=== PATIENT | male | born 1960 | race Caucasian/White ===

== ENCOUNTER 2017-12-26 12:55 | Emergency (ER) | payer BC ==
[~2017-12-26 12:55] MED LIST: LISI20TA29 PO
--- NOTE | 2017-12-26 13:05 | ER Report ---
History and Physical Time Seen By MD: 13:05 Hx. of Stated Complaint: LEFT FLANK PAIN. NO DIFFICULTY OF URINATING. HPI/ROS CHIEF COMPLAINT: Left flank pain HISTORY OF PRESENT ILLNESS: 57-year-old male patient presents to emergency room with complaint of left flank pain. Patient states that he has been having this pain intermittently for the last couple weeks. Patient does have a history of kidney stones in the past. States she's been doing well for the last couple of years, however he states this been bothering him. He states that he has not seen a urologist here in [place] since moving here approximately 10 years ago. He states he has passed a few stones since that time. He denies having any nausea, vomiting. Patient states that he has not taken any medication for this. He states this feels very similar to his previous kidney stones. REVIEW OF SYSTEMS: Respiratory: No cough, no dyspnea. Cardiovascular: No chest pain, no palpitations. Gastrointestinal: No vomiting, no abdominal pain. Musculoskeletal: As noted above Allergies: Coded Allergies: No Known Drug Allergies (Unverified , 12/26/17) Home Meds Active Scripts Tamsulosin Hcl (FLOMAX) 0.4 Mg Cap.er.24h, 0.4 MG PO DAILY, #15 CAP Prov:JOHANNE ROBINS [facility] 12/26/17 Ondansetron (ZOFRAN ODT) 4 Mg Tab.rapdis, 4 MG PO Q6H PRN for NAUSEA/VOMITING, #20 TAB.KEENAN Prov:ROBIN ROBINSE [facility] 12/26/17 Hydrocodone Bit/Acetaminophen (HYDROCODON-ACETAMINOPHEN 5-325) 1 Each Tablet, 1 EACH PO Q4-6H PRN for PAIN, #12 TAB Prov:SHIMONJOHANNE [facility] 12/26/17 Reported Medications Lisinopril (LISINOPRIL) 20 Mg Tablet, 20 MG PO QDAY, TAB 08/16/16 Past Medical/Surgical History Patient has a past medical history of neuropathy, hypertension, kidney stones. Patient has surgical history of lithotripsy. Reviewed Nurses Notes: Yes Hx Substance Use Disorder: No Hx Alcohol Use: No Constitutional Vital Sign - Last 24 Hours 12/26/17 12/26/17 12/26/17 12/26/17 13:01 13:02 13:36 14:00 Temp 98.0 Pulse 56 56 Resp 18 B/P (MAP) 132/85 132/85 (101) 123/79 (94) 120/79 (93) Pulse Ox 94 91 O2 Delivery Room Air 12/26/17 12/26/17 12/26/17 12/26/17 14:30 15:00 15:30 16:00 Pulse 54 64 56 56 B/P (MAP) 126/82 (97) 131/79 (96) 116/82 (93) 126/83 (97) Pulse Ox 88 94 91 90 12/26/17 16:22 B/P (MAP) 126/81 (96) Physical Exam General Appearance: The patient is alert, has no immediate need for airway protection and no current signs of toxicity. Respiratory: Chest is non tender, lungs are clear to auscultation. Cardiac: regular rate and rhythm Gastrointestinal: Abdomen is soft and non tender, no masses, bowel sounds normal. Patient does have some mild flank tenderness, not worsened with palpation. Musculoskeletal: Neck: Neck is supple and non tender. Extremities have full range of motion and are non tender. Skin: No rashes or lesions. DIFFERENTIAL DIAGNOSIS: After history and physical exam differential diagnosis was considered for kidney stone, polynephritis, diverticulitis. Medical Decision Making Data Points Result Diagram: 12/26/17 1307 12/26/17 1307 Laboratory Hematology Test 12/26/17 13:07 12/26/17 13:35 Red Blood Count 4.94 M/uL (4.00-5.60) Mean Corpuscular Volume 93.1 fL (80.0-96.0) Mean Corpuscular Hemoglobin 32.0 pg (26.0-33.0) Mean Corpuscular Hemoglobin Concent 34.3 g/dL (32.0-36.0) Red Cell Distribution Width 12.7 % (11.5-14.5) Mean Platelet Volume 9.3 fL (7.2-11.1) Neutrophils (%) (Auto) 45.7 % (39.4-72.5) Lymphocytes (%) (Auto) 44.6 % (17.6-49.6) Monocytes (%) (Auto) 7.7 % (4.1-12.4) Eosinophils (%) (Auto) 1.5 % (0.4-6.7) Basophils (%) (Auto) 0.5 % (0.3-1.4) Nucleated RBC Relative Count (auto) 0.1 /100WBC Neutrophils # (Auto) 2.2 K/uL (2.0-7.4) Lymphocytes # (Auto) 2.2 K/uL (1.3-3.6) Monocytes # (Auto) 0.4 K/uL (0.3-1.0) Eosinophils # (Auto) 0.1 K/uL (0.0-0.5) Basophils # (Auto) 0.0 K/uL (0.0-0.1) Nucleated RBC Absolute Count (auto) 0.00 K/uL Erythrocyte Sedimentation Rate 2 mm/HOUR (0-20) Sodium Level 141 mmol/L (137-145) Potassium Level 4.2 mmol/L (3.5-5.0) Chloride Level 106 mmol/L (98-107) Carbon Dioxide Level 26 mmol/L (22-30) Blood Urea Nitrogen 19 mg/dl (9-21) Creatinine 1.20 mg/dl (0.66-1.25) Glomerular Filtration Rate Calc > 60.0 Random Glucose 90 mg/dl (75-110) Calcium Level 8.9 mg/dl (8.4-10.2) Total Bilirubin 0.9 mg/dl (0.2-1.3) Aspartate Amino Transf (AST/SGOT) 28 U/L (0-35) Alanine Aminotransferase (ALT/SGPT) 33 U/L (0-56) Alkaline Phosphatase 52 U/L (0-126) C-Reactive Protein < 0.5 mg/dl (<1.0) Total Protein 6.8 g/dl (6.3-8.2) Albumin 4.0 g/dl (3.5-5.0) Urine Color Yellow Urine Clarity Clear Urine pH 5.0 pH (4.8-9.5) Urine Specific [place] 1.012 Urine Protein Negative mg/dL (NEGATIVE) Urine Glucose (UA) Negative mg/dL (NEGATIVE) Urine Ketones Negative mg/dL (NEGATIVE) Urine Blood Negative (NEGATIVE) Urine Nitrite Negative (NEGATIVE) Urine Bilirubin Negative (NEGATIVE) Urine Urobilinogen Negative mg/dL (0.2-1.9) Urine Leukocyte Esterase Negative (NEGATIVE) Urine RBC None /HPF (0-2/HPF) Urine WBC None /HPF (0-5/HPF) Urine Squamous Epithelial Cells None /LPF (</=FEW) Urine Bacteria Negative /HPF (NONE-FEW) Urine Mucus None /HPF (NONE-FEW) Chemistry Test 12/26/17 13:07 12/26/17 13:35 White Blood Count 4.9 k/uL (4.5-11.0) Red Blood Count 4.94 M/uL (4.00-5.60) Hemoglobin 15.8 g/dL (14.0-18.0) Hematocrit 46.0 % (42.0-52.0) Mean Corpuscular Volume 93.1 fL (80.0-96.0) Mean Corpuscular Hemoglobin 32.0 pg (26.0-33.0) Mean Corpuscular Hemoglobin Concent 34.3 g/dL (32.0-36.0) Red Cell Distribution Width 12.7 % (11.5-14.5) Platelet Count 121 K/uL (150-450) Mean Platelet Volume 9.3 fL (7.2-11.1) Neutrophils (%) (Auto) 45.7 % (39.4-72.5) Lymphocytes (%) (Auto) 44.6 % (17.6-49.6) Monocytes (%) (Auto) 7.7 % (4.1-12.4) Eosinophils (%) (Auto) 1.5 % (0.4-6.7) Basophils (%) (Auto) 0.5 % (0.3-1.4) Nucleated RBC Relative Count (auto) 0.1 /100WBC Neutrophils # (Auto) 2.2 K/uL (2.0-7.4) Lymphocytes # (Auto) 2.2 K/uL (1.3-3.6) Monocytes # (Auto) 0.4 K/uL (0.3-1.0) Eosinophils # (Auto) 0.1 K/uL (0.0-0.5) Basophils # (Auto) 0.0 K/uL (0.0-0.1) Nucleated RBC Absolute Count (auto) 0.00 K/uL Erythrocyte Sedimentation Rate 2 mm/HOUR (0-20) Glomerular Filtration Rate Calc > 60.0 Calcium Level 8.9 mg/dl (8.4-10.2) Total Bilirubin 0.9 mg/dl (0.2-1.3) Aspartate Amino Transf (AST/SGOT) 28 U/L (0-35) Alanine Aminotransferase (ALT/SGPT) 33 U/L (0-56) Alkaline Phosphatase 52 U/L (0-126) C-Reactive Protein < 0.5 mg/dl (<1.0) Total Protein 6.8 g/dl (6.3-8.2) Albumin 4.0 g/dl (3.5-5.0) Urine Color Yellow Urine Clarity Clear Urine pH 5.0 pH (4.8-9.5) Urine Specific [place] 1.012 Urine Protein Negative mg/dL (NEGATIVE) Urine Glucose (UA) Negative mg/dL (NEGATIVE) Urine Ketones Negative mg/dL (NEGATIVE) Urine Blood Negative (NEGATIVE) Urine Nitrite Negative (NEGATIVE) Urine Bilirubin Negative (NEGATIVE) Urine Urobilinogen Negative mg/dL (0.2-1.9) Urine Leukocyte Esterase Negative (NEGATIVE) Urine RBC None /HPF (0-2/HPF) Urine WBC None /HPF (0-5/HPF) Urine Squamous Epithelial Cells None /LPF (</=FEW) Urine Bacteria Negative /HPF (NONE-FEW) Urine Mucus None /HPF (NONE-FEW) Urinalysis Test 12/26/17 13:35 Urine Color Yellow Urine Clarity Clear Urine pH 5.0 pH (4.8-9.5) Urine Specific [place] 1.012 Urine Protein Negative mg/dL (NEGATIVE) Urine Glucose (UA) Negative mg/dL (NEGATIVE) Urine Ketones Negative mg/dL (NEGATIVE) Urine Blood Negative (NEGATIVE) Urine Nitrite Negative (NEGATIVE) Urine Bilirubin Negative (NEGATIVE) Urine Urobilinogen Negative mg/dL (0.2-1.9) Urine Leukocyte Esterase Negative (NEGATIVE) Urine RBC None /HPF (0-2/HPF) Urine WBC None /HPF (0-5/HPF) Urine Squamous Epithelial Cells None /LPF (</=FEW) Urine Bacteria Negative /HPF (NONE-FEW) Urine Mucus None /HPF (NONE-FEW) EKG/Imaging Imaging COMPUTED TOMOGRAPHY OF THE Abdomen and Pelvis with CONTRAST INDICATION: Flank pain. TECHNIQUE: Contiguous axial 3.[address] images were obtained through the abdomen and pelvis after 85 mL Isovue-370. Coronal and sagittal reformatted images were submitted. COMPARISON: None. FINDINGS: Lung bases: The lung bases are clear. Liver and hepatic vasculature: The liver surface appears mildly nodular, but there is no ascites or focal lesion apparent on this noncontrast study. Gallbladder and bile ducts: Surgically absent gallbladder. Spleen: Normal Pancreas: Normal Adrenals: Normal Kidneys, ureters and bladder: 3.3 cm left renal cyst is simple appearing. There are additional small cysts in the right kidney. A 2-3 mm calculus at the right kidney is nonobstructive. The bladder is unremarkable. There is a 4 to 5 mm calculus in the downstream left ureter results in no more than mild dilation of the left ureter and no significant hydronephrosis. Retroperitoneum and aorta: Normal caliber aorta. Scattered adenopathy. GI tract, mesentery and peritoneum: No bowel obstruction. No free fluid or free air. There are multiple pelvic surgical clips. There are several phleboliths in the pelvis. Suggestion of wall thickening involving the greater curvature of the stomach may be from incomplete filling. Prostate: Surgically absent Bones and soft tissues: No acute osseous abnormality. Multilevel degenerative findings in the lumbar spine. There is postsurgical change of anterior midline with a small fat-containing periumbilical hernia. Mild atrophy of the left rectus musculature. IMPRESSION: 1. The 4 to 5 mm calcification in the left lower pelvis appears to be within the distal ureter. However, this results in no more than mild dilation of the left ureter and no significant hydronephrosis. 2. Chronic findings as above. 3. Suggestion of wall thickening involving the greater curvature of the stomach may be from incomplete filling/distention, but the stomach is poorly evaluated by CT. One of the following dose optimization techniques was utilized in the performance of this exam: Automated exposure control; adjustment of the mA and/or kV according to the patient's size; or use of an iterative reconstruction technique. Specific details can be referenced in the facility's radiology CT exam operational policy. Report Dictated By: Daniel Angel MD at 12/26/2017 3:43 PM Report E-Signed By: Daniel Angel MD at 12/26/2017 4:05 PM ED Course/Re-evaluation ED Course Patient was admitted to an exam room, history and physical were obtained. Differential diagnoses were considered. On examination lungs are clear, heart is regular, abdomen soft nontender. Patient did not have any CVA tenderness. An IV was started, a CBC, CMP were done. Results were unremarkable. A urinalysis was done which also was negative. Patient received a liter of normal saline. We did offer him some Toradol which he refused to stay he was not having enough pain to necessitate that at this time. CT scan of abdomen and pelvis was done which showed a calcification in the distal ureter. I discussed findings with patient. We'll go ahead and discharge patient home with Flomax, pain medication. Patient is follow-up with urology if continues having problems. I anticipate he will pass this and encouraged him to use a filter to filtrate out. Patient verbalized understanding and agreement with plan. Decision to Disposition Date: Dec 26, 2017 Decision to Disposition Time: 15:59 Depart Departure Latest Vital Signs Vital Signs Date Time Temp Pulse Resp B/P (MAP) Pulse Ox O2 Delivery O2 Flow Rate FiO2 12/26/17 16:22 126/81 (96) 12/26/17 16:00 56 90 12/26/17 13:01 98.0 18 Room Air Impression: Primary Impression: Kidney stone on left side Condition: Improved Disposition: HOME OR SELF-CARE New Scripts Tamsulosin Hcl (FLOMAX) 0.4 Mg Cap.er.24h 0.4 MG PO DAILY, #15 CAP Prov: JOHANNE ROBINS 12/26/17 Ondansetron (ZOFRAN ODT) 4 Mg Tab.rapdis 4 MG PO Q6H PRN for NAUSEA/VOMITING, #20 TAB.KEENAN Prov: JOHANNE ROBINS 12/26/17 Hydrocodone Bit/Acetaminophen (HYDROCODON-ACETAMINOPHEN 5-325) 1 Each Tablet 1 EACH PO Q4-6H PRN for PAIN, #12 TAB Prov: JOHANNE ROBINS 12/26/17 Patient Instructions: Kidney Stones (ED) Additional Instructions: Increase fluid intake. Limit activity by pain. Follow up with your primary care provider in the next week. Take the medication as prescribed. Return to the ER if condition worsens, I expect some pain when it moves to the bladder and then it should resolve. JOHANNE ROBINS Dec 26, 2017 13:05
[2017-12-26] MEDS ORDERED: NS(*) 0.9% 1000 ML BAG 1,000 ML IV ONE (13:10)
[2017-12-26] MEDS ORDERED: KETOROLAC 15 MG/ML VIAL IVP ONE (13:10)
[2017-12-26 13:22] LABS: PLATELET COUNT, AUTOMATED 121 K/uL (150-450)
[2017-12-26] MEDS ORDERED: IOPAMIDOL 76% 100 ML INFUS BTL 100 ML ONE (13:25)
[2017-12-26] MEDS ORDERED: HYDR-385 PO (15:56)
[2017-12-26] MEDS ORDERED: ONDA4TAB PO (15:56)
[2017-12-26] MEDS ORDERED: TAMS0.4C25 PO (15:56)
--- NOTE | 2017-12-26 16:08 | RADIOLOGY IMAGING REPORT ---
FACILITY: [facility] PATIENT NAME: Reno Cabrera : 1960 MR: [id number] V: [id number] EXAM DATE: ORDERING PHYSICIAN: JOHANNE ROBINS TECHNOLOGIST: Location: [facility] Patient: Reno Cabrera : 1960 Visit/Account:[id number] Date of Sevice: 12/26/2017 COMPUTED TOMOGRAPHY OF THE Abdomen and Pelvis with CONTRAST INDICATION: Flank pain. TECHNIQUE: Contiguous axial 3.[address] images were obtained through the abdomen and pelvis after 85 m L Isovue-370. Coronal and sagittal reformatted images were submitted. COMPARISON: None. FINDINGS: Lung bases: The lung bases are clear. Liver and hepatic vasculature: The liver surface appears mildly nodular, but there is no ascites or focal lesion apparent on this noncontrast study. Gallbladder and bile ducts: Surgically absent gallbladder. Spleen: Normal Pancreas: Normal Adrenals: Normal Kidneys, ureters and bladder: 3.3 cm left renal cyst is simple appearing. There are additional smal l cysts in the right kidney. A 2-3 mm calculus at the right kidney is nonobstructive. The bladder i s unremarkable. There is a 4 to 5 mm calculus in the downstream left ureter results in no more than mild dilation of the left ureter and no significant hydronephrosis. Retroperitoneum and aorta: Normal caliber aorta. Scattered adenopathy. GI tract, mesentery and peritoneum: No bowel obstruction. No free fluid or free air. There are mult iple pelvic surgical clips. There are several phleboliths in the pelvis. Suggestion of wall thicken ing involving the greater curvature of the stomach may be from incomplete filling. Prostate: Surgically absent Bones and soft tissues: No acute osseous abnormality. Multilevel degenerative findings in the lumbar spine. There is postsurgical change of anterior midline with a small fat-containing periumbilical h ernia. Mild atrophy of the left rectus musculature. IMPRESSION: 1. The 4 to 5 mm calcification in the left lower pelvis appears to be within the distal ureter. How ever, this results in no more than mild dilation of the left ureter and no significant hydronephrosis . 2. Chronic findings as above. 3. Suggestion of wall thickening involving the greater curvature of the stomach may be from incomple te filling/distention, but the stomach is poorly evaluated by CT. One of the following dose optimization techniques was utilized in the performance of this exam: Autom ated exposure control; adjustment of the mA and/or kV according to the patient's size; or use of an i terative reconstruction technique. Specific details can be referenced in the facility's radiology C T exam operational policy. Report Dictated By: Daniel Angel MD at 12/26/2017 3:43 PM Report E-Signed By: Daniel Angel MD at 12/26/2017 4:05 PM WSN:[email or web address]
[2017-12-26 16:22] VITALS: BP 126/81
== END 2017-12-26 16:22 | disposition home or self-care (01) ==
LOC: ER 13:04
DX: N20.0 Calculus of kidney (principal)
CPT/HCPCS: 74177; 81001; 85025; 85651; 86140; 96360; 99284; J7030; Q9967; 82040; 82247; 82310; 82374; 82435; 82565; 82947; 84075; 84132; 84155; 84295; 84450; 84460; 84520